=== PATIENT | female | born 1990 | race Caucasian/White ===

== ENCOUNTER 2019-11-12 05:09 | Inpatient (IN) | payer OTHER ==
[~2019-11-12 05:09] MED LIST: Buffered Lidocaine 1% SYRIN* 1 ML/SYRINGE INTRADERM ONE
--- OUTSIDE RECORDS SUMMARY | 2019-11-12 05:12 | XMS REPORT | Continuity of Care Document ---
:1990 External Reference #:[id number] Author Name Gil Nava JR, DO (transmitted by agent of provider Blanka Conley ) Address [address] [facility] [address], [place] [address] Problems Active Problems Provider Date Multigravida Gabrielle Jean CNM Onset: 03/30/2019 Previous uterine surgical scar Tariq Mauro MD Onset: 10/14/2019 Social History Type Date Description Comments Sex Unknown Tobacco Use Start: Unknown Never Smoked Cigarettes Smoking Status Reviewed: 11/03/19 Never Smoked Cigarettes ETOH Use Consumes 1 glass of wine per week Recreational Drug Use Does Not Use Drugs Allergies, Adverse Reactions, Alerts Description No Known Drug Allergies Medications Active Medications SIG Qnty Indications Ordering Provider Date PNV-Dha 1 by mouth every Unknown 27-0.6-0.4-300mg day Capsules Aspirin Adult Low Dose Unknown 81mg Tablets DR Medications Administered in Office Medication SIG Qnty Indications Ordering Provider Date PT SCRN Tbco Id as Non User Chaparrita Henry CNM 11/30/2018 Injection Immunizations CPT Code Status Date Vaccine Lot # [id number] Given 08/16/2019 Tetnus, Diptheria Toxoids And Acellular Pertussis, 745N2 PT > 7Yrs Old 85[address] Given 2019 Influenza Vaccine Quadrivalent Preser/Antibiotic [id number] Free Im Use Vital Signs Date Vital Result Comment 11/03/2019 9:27am Height 63 inches 5'3" Last Menstrual Period 2951758 3 Parity 1 03/30/2019 2:18pm BP Systolic 120 mmHg BP Diastolic 70 mmHg Height 63 inches 5'3" Weight 107.00 lb BMI (Body Mass Index) 19.0 kg/m2 Last Menstrual Period 8489844 3 Parity 1 Results Test Acquired Date Facility Test Result H/L Range Note Laboratory test 10/08/2019 [facility] Genital For SEE RESULT 1 [place] [address] GRP B Strep BELOW [phone] Only Laboratory test 08/16/2019 [facility] Glucose 1 HR 99 mg/dL Normal 70-160 2 [place] [address] Post Prandial [phone] CBC With No 08/16/2019 [facility] White Blood 9.9 Normal 3.5- 10.8 [place] [address] Count 10^3/uL [phone] Red Blood Count 4.10 10^6/uL Normal 3.70-4.87 Hemoglobin 13.2 g/dL Normal 12.0-16.0 Hematocrit 38 % Normal 35-47 Mean Corpuscular Volume 94 fL Normal 80-97 Mean Corpuscular Hemoglobin 32 pg High 27-31 Mean Corpuscular HGB Conc 34 g/dL Normal 31-36 Red Cell Distribution Width 13 % Normal 10-15 Platelet Count 179 10^3/uL Normal 150-450 Mean Platelet Volume 8.1 fL Normal 7.4-10.4 Sequential Integreated SCRN 2 [place] 05/17/2019 Interpretation SEE BELOW 3 Risk For Ontd 1:4300 Age Risk Down Syndrome 1:950 TERESITA Down Syndrome Risk <1:5000 <1:270 TERESITA Trisomy 18 Risk <1:5000 <1:100 Calculated Gestational Age 16.7 4 Afp,Serum 59.4 ng/mL Afp Mom 1.31 5 HCG,Serum 37.3 IU/mL HCG Mom 1.01 Estriol,Free 1.36 ng/mL Estriol Mom 1.26 Inhibin A,Dimeric 205 pg/mL Inhibin A Mom 1.03 Armida-A 2006.9 ng/mL 6 Armida-A Mom 1.43 NT Mom 0.79 7 Referring Physician Name NOT GIVEN Referring Physician Phone NOT GIVEN Referring Physician Npi NOT GIVEN Specimen # From Part 1 NOT GIVEN Date Of 1990 Collection Date 05/17/2019 Maternal Weight 107 lbs Est'd Date Of Delivery 10/26/2019 Nuchal Translucency 1.2 mm [place] Rump Length 68 mm Ultrasound Date 04/20/2019 Nasal Bone NOT GIVEN Mother's Ethnic Origin Insulin Depend Diabetic NO Repeat Specimen NO Number Of Fetuses 1 HX Of Neural Tube Defects NO Cigarette Smoker NOT GIVEN Twin B Nasal Bone NG 8 1 SEE RESULT BELOW Name: YESSI CORNELIUS : [address]: Gil Nava DO Acct: [id number] Unit: [id number] AGE: 29 Location: [facility] Re10/08/19 SEX: F Status: REG REF SPEC: [id number] MELONIE: 10/08/19-[address]: Gil Nava DO REQ: [id number] RECD: 10/08/19161 STATUS: COMP _ SOURCE: DENISE/DELIA/RE SPDESC: ORDERED: Grp B Strp Scrn COMMENTS: [id number] QUERIES: Is Patient Penicillin Allergic? N Is patient penicillin allergic and/or sensitivities needed? N Provider Requisition # [id number] Procedure Result Reported Site Group B Strep Culture Screen Final 10/10/19- 1201 ML Group B Strep Screen Negative * ML - Main Lab . END OF REPORT DEPARTMENT OF PATHOLOGY, [address] [place] [address] Anshu Perez M.D. Director [facility] # [id number] 2 [id number] SCREEN NEGATIVE FOR OPEN NTD, DOWN SYNDROME AND TRISOMY 18. NT WAS USED IN THE RISK CALCULATIONS. 4 [place] rump length (CRL) was used to calculate gestational age. TUAN, if provided, was not used for gestational age dating. 5 Reference Range: <2.50 IDD <1.90 TWINS <4.00 TWINS IDD <3.50 TRIPLETS <4.50 6 This test was performed using a kit that has not been cleared or approved by the FDA. The analytical performance characteristics of this test have been determined by [employer] [facility]. This test should not be used for diagnosis without confirmation by other medically established means. 7 The Sequential Integrated Screen combines ARMIDA-A and hCG with or without a nuchal translucency measurement in the first trimester with AFP, unconjugated estriol, intact hCG and Inhibin A in the second trimester. This provides a useful screening test for detection of open neural tube defects, Down syndrome and Trisomy 18. It should be noted that normal results can never guarantee the of a normal baby and that 2 to 3 percent of newborns have some type of physical or mental defect, many of which are undetectable through any known diagnostic technique. Interpretation reviewed by: Rafa Palomares, Ph.D., [facility]. 8 For additional information, please refer to http://education.[employer].Quikly/faq/FAQ94 (This link is provided for informational/educational purposes only.) This is a screening test, not a diagnostic test. This risk assessment is based on demographic data provided by the ordering physician. Please notify the laboratory promptly if any data are incorrect. It has been observed that patients who smoke cigarettes during may have a slightly increased risk of having a false positive TERESITA screen for Down Syndrome or trisomy 18. If you have questions concerning this report: For clinical consultation, call ; For technical questions, call ext [phone]; For recalculations, fax to . Procedures Date Code Description Status 2019 59853 Echography Uterus Complete Completed Medical Devices Description No Information Available Encounters Description No Information Available Assessments Date Code Description Provider 10/26/2019 Z34.83 Encounter for supervision of other normal Ann-Marie Schwartz CNM , third trimester 10/14/2019 O34.211 Maternal care for low transverse scar from Tariq Mauro MD previous delivery 10/08/2019 O34.211 Maternal care for low transverse scar from Gil Nava JR, DO previous delivery 09/24/2019 Z34.83 Encounter for supervision of other normal Aquilino Steven M.D. , third trimester 09/07/2019 Z36.9 Encounter for screening, Aquilino Steven M.D. unspecified 08/16/2019 Z36.9 Encounter for screening, Aquilino Steven M.D. unspecified 08/16/2019 Z36.9 Encounter for screening, Laboratory unspecified 08/16/2019 Z23 Encounter for immunization Debi Arias MD 08/16/2019 O34.211 Maternal care for low transverse scar from Debi Arias MD previous delivery 07/16/2019 Z34.82 Encounter for supervision of other normal Aquilino Steven M.D. , second trimester 2019 Z36.3 Encounter for screening for Gil Nava JR, DO malformations 2019 O34.211 Maternal care for low transverse scar from Gil Nava JR, DO previous delivery 2019 Z23 Encounter for immunization Gil Nava JR, DO 2019 Z36.3 Encounter for screening for Ultrasounds malformations 05/17/2019 Z36.9 Encounter for screening, Debi Arias MD unspecified 05/17/2019 O34.211 Maternal care for low transverse scar from Tariq Mauro MD previous delivery 05/17/2019 Z36.9 Encounter for screening, Laboratory unspecified Plan of Treatment Future Appointment(s):11/12/2019 11:00 am - Ivis Alfonso CNM at [facility] O 12/21 1:30 pm - Gil Nava JR, DO at [facility]11/19/2019 1:30 pm - Ivis Alfonso CNM at [facility]11/12/2019 11:00 am - Gil Nava JR, DO at [facility] O R Functional Status Description No Information Available Mental Status Description No Information Available Referrals Description No Information Available
--- OUTSIDE RECORDS SUMMARY | 2019-11-12 05:12 | XMS REPORT | Continuity of Care Document ---
:1990 External Reference #:[id number] Author Name Gil Nava JR, DO (transmitted by agent of provider Blanka Conley ) Address [address] [facility], [place] [address] Problems Active Problems Provider Date Multigravida Gabrielle [...] CPT Code Status Date Vaccine Lot # [id number] Given 08/16/2019 Tetnus, Diptheria Toxoids And Acellular Pertussis, 745N2 PT > 7Yrs Old [address] Given 2019 Influenza Vaccine Quadrivalent Preser/Antibiotic [id number] Free Im Use Vital Signs Date Vital Result Comment 11/03/2019 9:27am Height 63 inches 5'3" Last Menstrual Period 8797639 3 Parity 1 03/30/2019 2:18pm BP Systolic 120 mmHg BP Diastolic 70 mmHg Height 63 inches 5'3" Weight 107.00 lb BMI (Body Mass Index) 19.0 kg/m2 Last Menstrual Period 1786637 3 Parity 1 Results Test Acquired Date Facility Test Result H/L Range Note Laboratory test 10/08/2019 [facility] Genital For SEE RESULT 1 [place] [address] GRP B Strep BELOW [phone] Only Laboratory test 08/16/2019 [facility] Glucose 1 HR 99 mg/dL Normal 70-160 2 [place] [address] Post Prandial [phone] CBC With No 08/16/2019 [facility] White Blood 9.9 Normal 3.5- 10.8 [place] [address] Count 10^3/uL [phone] Red Blood Count 4.10 10^6/uL Normal 3.70-4.87 [...] fL Normal 7.4-10.4 Sequential Integreated SCRN 2 [place] 05/17/2019 Interpretation SEE BELOW 3 Risk For [...] Of Delivery 10/26/2019 Nuchal Translucency 1.[address] [place] Rump Length 68 mm Ultrasound Date 04/20/2019 Nasal Bone NOT GIVEN Mother's Ethnic Origin Insulin Depend Diabetic NO Repeat Specimen NO Number Of Fetuses 1 HX Of Neural Tube Defects NO Cigarette Smoker NOT GIVEN Twin B Nasal Bone NG 8 1 SEE RESULT BELOW Name: YESSI CORNELIUS : [address]: Gil Nava DO Acct: [id number] Unit: [id number] AGE: 29 Location: [facility] Re10/08/19 SEX: F Status: REG REF SPEC: [id number] MELONIE: 10/08/19-[address]: Gil Nava DO REQ: [id number] RECD: 10/08/19161 STATUS: COMP _ SOURCE: DENISE/DELIA/RE SPDESC: ORDERED: Grp B Strp Scrn COMMENTS: [id number] QUERIES: Is Patient Penicillin Allergic? N Is patient penicillin allergic and/or sensitivities needed? N Provider Requisition # [id number] Procedure Result Reported Site Group B Strep Culture Screen Final 10/10/19- 1201 ML Group B Strep Screen Negative * ML - Main Lab . END OF REPORT DEPARTMENT OF PATHOLOGY, [address] [place] [address] Anshu Perez M.D. Director [facility] # [id number] 2 [id number] SCREEN NEGATIVE FOR OPEN NTD, DOWN SYNDROME AND TRISOMY 18. NT WAS USED IN THE RISK CALCULATIONS. [address] [place] rump length (CRL) was used to calculate gestational age. TUAN, if provided, was not used for gestational age dating. 5 Reference Range: <2.50 IDD <1.90 TWINS <4.00 TWINS IDD <3.50 TRIPLETS <4.50 6 This test was performed using a kit that has not been cleared or approved by the FDA. The analytical performance characteristics of this test have been determined by [facility]. This test should not be used for [...] technique. Interpretation reviewed by: Rafa Palomares, Ph.D., [facility]. 8 For additional information, please refer to http://education.[employer].Am[employer]/faq/FAQ94 (This link is provided for informational/educational purposes [...] call ; For technical questions, call ext [phone]; For recalculations, fax to . Procedures Date Code Description Status 2019 86424 Echography Uterus Complete Completed Medical Devices Description [...] 11:00 am - Ivis Alfonso CNM at [facility] O 12/21 1:30 pm - Gil Nava JR, DO at [facility]11/19/2019 1:30 pm - Ivis Alfonso CNM at [facility]11/12/2019 11:00 am - Gil Nava JR, DO at [facility] O R Functional Status Description No Information Available Mental Status Description No Information Available Referrals Description No Information Available
[2019-11-12] MEDS ORDERED: Lactated Ringers 1000 ML Bag* 1,000 ML IV SCH ×2 (06:00→08:00)
[2019-11-12 06:46] LABS: Urine Benzodiazepine Screen None Detected (None Detect); Urine Opiates Screen None Detected (None Detect)
[2019-11-12] MEDS ORDERED: Buffered Lidocaine 1% SYRIN* 1 ML/SYRINGE INTRADERM ONE (07:47)
[2019-11-12] MEDS ORDERED: Lactated Ringers 1000 ML Bag* 1,000 ML IV ONE (07:47)
--- NOTE | 2019-11-12 10:54 | HP ---
General Information - Reason for Visit contractions, early labor, TOLAC - General Information Maternal Age: 29 Grav: 3 Para: 1 SAB: 1 IEA: 0 Estimated Due Date: 10/31/19 Determined By: LMP Gestational Age in Weeks/Days: 41w5d Maternal Blood Type and Rh: A Positive - Results this Serology/RPR Result: Non-Reactive Rubella Result: Immune HBsAg Result: Negative HIV Result: Negative GBS Culture Result: Negative Past Medical History Delivery History: Hx C/Section - Hx of x 1 Pertinent Past Medical History: See Records - MTHFR heterozygous Pertinent Past Surgical History: See Records Pertinent Family History: See Records - Antepartal Records Antepartal Records: Reviewed, Complicated by: - Hx of x 1, excellent TOLAC candidate Review of Systems Constitutional: Uncomfortable CV Complaint: No Respiratory: Shortness of Breath: No Gastrointestinal: No Nausea/Vomiting, Normal Bowel Movement Genitourinary: No Dysuria, No Bleeding, No Leaking Fluid Musculoskeletal: No Complaint, No Epigastric Pain Neurological: No Headache, No Visual Changes Movement: Normal Exam Allergies/Adverse Reactions: Allergies No Known Allergies Allergy (Verified 11/12/19 05:20) T98.8 Pulse 91 EE 17 BP 113/75 02 Sat 100% Lab Values - Entire Visit: Laboratory Tests 11/12/19 05:44 Urine Opiates Screen None detected Ur Barbiturates Screen None detected Ur Phencyclidine Scrn None detected Ur Amphetamines Screen None detected U Benzodiazepines Scrn None detected Urine Cocaine Screen None detected - Measurements Height: 5 ft 3 in Weight: 130 lb Weight in lbs: 130.891740 Body Mass Index (BMI): 23.0 Pre- Weight: 110 lb Weight Gained This : 20 lbs and 0 ozs - Exam Breast: Breast Exam Deferred CVA: No CVA Tenderness Extremities: No Edema Heart: Normal Rhythm/Heart Sounds HEENT: No Significant Findings Lungs: Clear Bilaterally Rectal: Rectal Exam Deferred Reflexes: DTR 2+ Thyroid: No Thyromegaly - Abdominal Exam Abdomen Exam: Non-Tender, Fundal Height Consistent with Dates - Ultrasound/Biophysical Profile Ultrasound Status: Not Done Targeted Exam Findings Estimated Weight: 8# Cervical Exam: 1cm Presenting Part: Vertex Membrane Status: Intact Bleeding/Discharge: None EFM Findings - External Monitor Findings Baseline Heart Rate: 130 External Monitor Findings: Accelerations Present, No Pattern of Variable or Late Decelerations, Variability Moderate, Baseline Stable External Monitor Findings Comment: category I FHT Contractions: Regular, Moderate, 45-90 Seconds Assessment/Plan - Assessment 29 y/o at 41w5d presents with painful regular contractions, strongly desires TOLAC. First for failed IOL at 39 weeks, reason given for IOL MTHFR heterozygote. Pt is a good candidate for TOLAC. FHT is reactive and category I. Ca regularly, Cervix is only 1cm at this time. Risks versus benefits of TOLAC versus repeat reviewed with pt. Pt strongly desires TOLAC with expectant management at this time. RH+ Rubella Immune GBS negative - Obstetrical Risk Factors Obstetrical Risk Factors: Post-Dates, Previous C/Section in Labor - Plan Plan: Observe Plan Comment: Will admit and expectantly manage at this time Re-examine as clinically indicated Will augment with cooks balloon and/or Pitocin if clinically indicated - Date/Time of Admission Date of Admission: 11/12/19 Time of Admission: 07:30
--- NOTE | 2019-11-12 12:41 | PN ---
Progress Note - Progress Note Date of Service: 11/12/19 Note: 29 y/o at 41w5d in early labor, TOLAC Cervix re-examined and essentially unchanged after several hours of labor. Exam now is 1cm/80%/-3. Cervix is soft, anterior. FHT remains Category I, reactive with moderate variability. Discussed Risks and benefits of options at this point including continued expectant management versus proceeding with repeat versus attempt at augmentation. Pt continues to strongly desire TOLAC. Agrees to try Cooks balloon. Cooks balloon placed transcervically at 1220pm with 80cc NS and 70cc NS placed in the uterine and vaginal balloons respectively. Pt tolerated procedure well. Ca regularly q 3 minutes. Will continue to monitor closely, re-examine as clinically indicated, if contractions space out will augment with low dose pitocin. Anesthesia aware of pt presence on L&D and in house. Nestor Nava, DO BRYAN
--- NOTE | 2019-11-12 14:00 | CONSULT ---
Consult Consult: 29 yo woman with PMH significant for an elective section who is presenting for a TOLAC. HPI : Her previous section was done 2/2 PMH of being a MTHFR heterozygote. She had no symptoms of her gene mutation impacting her health such as a clot or pre- eclampsia. She was scheduled for a section today but came into the hospital in labor. After discussion of risks vs benefits with Dr. Nava she decided to try to have a vaginal delivery. She is larisa regularly and a cook catheter was placed to help facilitate progression. She currently denies any symptoms of SOB, anything suggestive of a blood clot. Her baby has had reassuring heart tracings. Her has been non-eventful. PMH - no issues with anesthesia in the past NKDA Meds - ASA was stopped a week ago, Multi-vitamins ROS : see above PE : VS - Reviewed, see RN charting Gen - young, thin HEENT - Mal 2, TM dist > 6cm Pulm - CTABL CV - NMRG A/P: 29 yo woman with PMH significant for an elective section who is presenting for a TOLAC. She is having intense and painful contractions that she is able to recover from. However, she is only dilated to 1cm but she is 80 % effaced. Given that an obstetrical intervention has occurred and the intensity of her contractions, Dr. Nava has asked that an anesthesiologist stay in the hospital in case emergently needed. I discussed with her what type of anesthesia care may happen in case she has to emergently go to the OR. She also is currently considering an epidural. Thank you for allowing us to participate in her care.
--- NOTE | 2019-11-12 21:43 | PN ---
Progress Note - Progress Note Date of Service: 11/12/19 Note: 29 y/o at 41w5d in labor, TOLAC Labor course --> spontaneous contractions with limited cervical change FT--> 1cm --> cooks balloon 80/70 at 1230 --> spontaneously expelled at 1830 cervix 5cm --> expectantly managed --> re-examined at 2054 head with good descent of head; AROM'd with light meconium. FHT has been category I with accelerations and moderate variablity, no decels throughout labor [place] - pt has been larisa spontaneously q 2-3 minutes Will expectantly manage at this time continuous EFM Will re-examine as clinically indicated Will augment with Pitocin if indicated Anticipate vaginal delivery RH+/RI GBS negative DO IRVIN Darden
--- NOTE | 2019-11-12 23:12 | PN ---
Progress Note - Progress Note Date of Service: 11/12/19 Note: Pt continuing to contract regularly. Feeling more pressure with contractions. Early decelerations intermittently with contractions. Occasional Variable. Reactive with good variability, reassuring. Continuous monitoring. Continue Expectant management. Anticipate Vaginal delivery. DO IRVIN Darden
[2019-11-13] MEDS ORDERED: OBEPIDURAL* 250 ML EPIDURAL ONE (00:20)
--- NOTE | 2019-11-13 00:24 | PN ---
Progress Note - Progress Note Date of Service: 11/13/19 Note: Pt re-examined. Now 7cm/100/-1. Contractions increasing in intensity. Pt requests epidural, Anesthesia notified. Pt continues to desire TOLAC. FHT is reactive and reassuring with moderate variablity, + accels and occasional early decelerations. OK for epidural. Ca regularly and making progress. Re-examine as clinically indicated. Anticipate vaginal delivery. Nestor Nava, DO BRYAN
[2019-11-13] MEDS ORDERED: Lactated Ringers 1000 ML Bag* 500 ML IV PRN ×2 (01:29)
[2019-11-13] MEDS ORDERED: Sodium Citrate/Citric Acid* 15 ML UDC PO PRN (01:29)
[2019-11-13] MEDS ORDERED: Famotidine TAB* 20 MG PO PRN (01:29)
[2019-11-13] MEDS ORDERED: Lactated Ringers 1000 ML Bag* 1,000 ML IV ONE (01:29)
[2019-11-13] MEDS ORDERED: Phenylephrine 40 MCG/ML SYRINGE IV PUSH PRN (01:29)
[2019-11-13] MEDS ORDERED: EPHEDrine (Pressors)* 50 MG/ML VIAL IV PUSH PRN ×2 (01:29)
[2019-11-13] MEDS ORDERED: OBEPIDURAL* 250 ML EPIDURAL SCH (02:00)
[2019-11-13] MEDS ORDERED: Lactated Ringers 1000 ML Bag* 1,000 ML IV SCH ×2 (02:00→14:00)
[2019-11-13] MEDS: Phenylephrine 40 MCG/ML SYRINGE IV PUSH PRN ×2 (02:02→02:05)
[2019-11-13] MEDS ORDERED: Oxytocin in LR* 20 UNITS/1,000 ML BAG IVPB ONE (02:32)
--- NOTE | 2019-11-13 02:48 | PN ---
Progress Note - Progress Note Date of Service: 11/13/19 Note: Pt now comfortable s/p Epidural. S/P Epidural BP's with transient drop which led to FHT changes including variable decels and late decel x 2. Pt adequately resuscitated and BP's improved after which FHT abnormalities resolved. Throughout time tracing has maintained good beat to beat variability. Currently FHT is baseline 140bpm, moderate variablity, + accels, no patterned late or variable decels. Pt continues to contract. Cervix is now 7cm/100/0 station. Will start Low-dose Pitocin to encourage continued descent. Pt continues to desire TOLAC. Will continue maternal repositioning as indicated. Continuous EFM. DO IRVIN Darden
[2019-11-13] MEDS ORDERED: Oxytocin in LR* 20 UNITS/1,000 ML BAG IVPB SCH (03:00)
--- NOTE | 2019-11-13 06:59 | PN ---
Progress Note - Progress Note Date of Service: 11/13/19 Note: Pt on Pitocin overnight, larisa regularly and sleeping comfortably. Re-examined at ~630am, now 8-9cm/100%/0 station; pt with irresistible urge to push, attempted to push past cervix briefly, cervix is now a lip. FHT with prolonged deceleration to the 80's-90's after push. Pitocin off, Oxygen applied and maternal repositioning with good effect. Mother now on hands and knees, comfortable. FHT is reactive with moderate variability and early decelerations, stable baseline at 140bpm. Larisa q 2-3 minutes. Discussed with patient risks versus benefits of continuing with TOLAC. Pt wishes to proceed with TOLAC at this time. Is continuing to contract without augmentation and FHT has resolved as described above. Agreed with patient to continue with TOLAC for additional 1-2 hours as long as FHT is reassuring. Will re-examine as clinically indicated, if no progress or any signs of distress on next exam will proceed with repeat . Pt expresses agreement to and understanding of plan. DO IRVIN Darden
[2019-11-13] MEDS ORDERED: diPHENhydraMINE IV* 50 MG/ML 1 ml VIAL (BENADRYL) ONE (10:43)
[2019-11-13] MEDS ORDERED: Dibucaine 1% 28.35 GM TUBE ONE (12:34)
[2019-11-13] MEDS ORDERED: Ibuprofen TAB* 600 MG ONE (12:34)
[2019-11-13] MEDS ORDERED: Acetaminophen TAB* 325 MG ONE (12:34)
[2019-11-13] MEDS ORDERED: Witch Hazel PAD* JAR ONE (12:35)
[2019-11-13] MEDS ORDERED: Witch Hazel PAD* JAR TOPICAL PRN (13:02)
[2019-11-13] MEDS ORDERED: Glycerin ADULT SUPP PR PRN (13:02)
[2019-11-13] MEDS: Ibuprofen TAB* 600 MG PO PRN ×2 (13:35→19:40)
[2019-11-13] MEDS: Acetaminophen TAB* 325 MG PO PRN ×2 (13:36→17:43)
[2019-11-13] MEDS ORDERED: Phenylephrine 40 MCG/ML SYRINGE ONE (14:37)
[2019-11-13] MEDS ORDERED: Lidocaine 1% INJ* 10 MG/ML 30 ML SDV ONE (14:37)
[2019-11-13] MEDS: Docusate CAP* 100 MG PO SCH (15:58)
--- NOTE | 2019-11-13 16:34 | PROCNOTE ---
[facility] OB: Delivery Note - Delivery A Date of : 11/13/19 Time of : 11:30 [place] Sex: Male Weight at : 8 lb 7 oz Score 1 Minute: 7 Score 5 Minutes: 9 Gestational Age in Weeks and Days at Delivery: 41 Weeks and 6 Days Delivery Method: Spontaneous Vaginal Labor: Spontaneous Did Patient attempt ?: Yes, Successful Amniotic Fluid: Meconium Estimated Blood Loss: 300 Anesthesia/Analgesia: CEI for Labor Delivered By: Jamila Burden - Nursery Level of Nursery: Regular/Bedside - Perineum Perineal Injury: Perineal Laceration, Vaginal Laceration, 3rd Degree Extension - Events Delivery Events of Note: Pitocin During Labor, Maternal Temperature during Labor , Pushed > 3 Hours Delivery Events of Note Comment: Pushed 3 hours and 5 minutes - Additional Delivery Notes Additional Delivery Notes: Pt with prior CS and presented for induction of labor with balloon catheter and then AROM. She slowly progressed to AL but was able to push through the lip to fully dilated. She pushed for ~3hrs in various positions to deliver the infant' s head in JAYE position followed quickly by the shoulders and the rest of the body. The baby was placed on mom's abdomen. The cord was clamped x2 and cut. The placenta was delivered with fundal massage and gentle cord traction and appeared intact. There was a 3rd degree laceration with right labial and sulcal tear. The sphincter muscle was reapproximated with 2 figure of eight sutures of 2-0 vicryl. The sulcal tear was repaired with 3-0 vicryl in a running locked fashion and then the rest of the perineal tear was repaired in the usual fashion. The skin laceration extended just to the edge of the anus. Finally the labial tear was reapproximated. Fundus was firm with good hemostasis.
[2019-11-13] MEDS ORDERED: Simethicone TAB* 80 MG TAB.CHEW PO SCH (17:30)
[2019-11-14] MEDS: Acetaminophen TAB* 325 MG PO PRN ×4 (00:43→21:00)
[2019-11-14] MEDS: Ibuprofen TAB* 600 MG PO PRN ×3 (06:31→21:00)
[2019-11-14 06:34] LABS: ABS Lymphocytes 1.6 10^3/ul (1.0-4.8); ABS Monocytes 0.7 10^3/ul (0-0.8); ABS Neutrophils 10.8 10^3/ul (1.5-7.7); Eosinophil % 0.2 %; Hematocrit 24 % (35-47); Hemoglobin 8.2 g/dL (12.0-16.0); Lymphocyte % 12.5 %; Mean Corpuscular HGB Conc 35 g/dL (31-36); Mean Corpuscular Hemoglobin 32 pg (27-31); Mean Corpuscular Volume 92 fL (80-97); Platelet Count 117 10^3/uL (150-450); Red Blood Count 2.56 10^6 /uL (3.70-4.87); Red Cell Distribution Width 13 % (10-15); White Blood Count 13.2 10^3/uL (3.5-10.8)
[2019-11-14] MEDS: Docusate CAP* 100 MG PO SCH ×4 (08:09→21:00)
[2019-11-14] MEDS: Ferrous Gluconate TAB* 324 MG TAB PO SCH ×2 (08:12→21:00)
[2019-11-14] MEDS: Dibucaine 1% 28.35 GM TUBE PR PRN (14:18)
[2019-11-15] MEDS: Acetaminophen TAB* 325 MG PO PRN ×3 (01:23→11:51)
[2019-11-15] MEDS: Ibuprofen TAB* 600 MG PO PRN (08:04)
[2019-11-15] MEDS: Ferrous Gluconate TAB* 324 MG TAB PO SCH (08:05)
[2019-11-15] MEDS: Docusate CAP* 100 MG PO SCH (08:05)
[2019-11-15 08:26] VITALS: BP 122/67
[2019-11-15] MEDS: Dibucaine 1% 28.35 GM TUBE PR PRN (11:51)
== END 2019-11-15 12:15 | disposition home or self-care (01) | DRG 768 ==
LOC: MCHOB 05:09
PROVIDERS: ADMIT Obstetrics & Gynecology; ATTEND Obstetrics & Gynecology
PROC: 10E0XZZ Delivery of Products of Conception, External Approach (ICD-10-PCS; principal; 2019-11-13)
PROC: 0DQR0ZZ Repair Anal Sphincter, Open Approach (ICD-10-PCS; 2019-11-13)
PROC: 10907ZC Drainage of Amniotic Fluid, Therapeutic from Products of Conception, Via Natural or Artificial Opening (ICD-10-PCS; 2019-11-13)
DX: O48.0 Post-term pregnancy (principal); Z37.0 Single live birth; O70.20 Third degree perineal laceration during delivery, unspecified; O77.0 Labor and delivery complicated by meconium in amniotic fluid; O90.81 Anemia of the puerperium; D64.9 Anemia, unspecified; O34.211 Maternal care for low transverse scar from previous cesarean delivery; Z3A.41 41 weeks gestation of pregnancy
CPT/HCPCS: 36415; 80307; 85025; A9270-GY; G0480; J1200

== ENCOUNTER 2021-11-11 11:23 | Inpatient (IN) ==
[2021-11-11] MEDS ORDERED: Lactated Ringers 1000 ml BAG 1,000 ML IV ONE (12:35)
[2021-11-11] MEDS ORDERED: Buffered Lidocaine 1% SYRIN 1 ml INTRADERM ONE (12:35)
[2021-11-11] MEDS ORDERED: Lactated Ringers 1000 ml BAG 1,000 ML IV SCH (13:00)
[2021-11-11 13:30] LABS: Urine Benzodiazepine Screen None Detected (None Detect); Urine Cannabinoids Screen None Detected (None Detect); Urine Opiates Screen None Detected (None Detect)
[2021-11-11 14:08] LABS: Urine Appearance Clear; Urine Bilirubin Negative (Negative); Urine Blood Negative (Negative); Urine Color Yellow; Urine Glucose Negative (Negative); Urine Ketones Negative (Negative); Urine Nitrite Negative (Negative); Urine Protein Negative (Negative); Urine Specific Gravity 1.012 (1.002-1.030); Urine Urobilinogen Negative (Negative)
[2021-11-11 14:11] LABS: Urine Bacteria Absent (Absent); Urine Red Blood Cell Trace(0-2/hpf) (Absent); Urine Squamous Epithelial Cell Present (Absent); Urine White Blood Cell Trace(0-5/hpf) (Absent)
[2021-11-11 14:58] LABS: ABS Lymphocytes 1.5 10^3/ul (1.0-4.8); ABS Monocytes 0.5 10^3/ul (0-0.8); ABS Neutrophils 6.8 10^3/ul (1.5-7.7); Eosinophil % 0.2 %; Hematocrit 38 % (35-47); Hemoglobin 13.2 g/dL (12.0-16.0); Lymphocyte % 17.1 %; Mean Corpuscular HGB Conc 34 g/dL (31-36); Mean Corpuscular Hemoglobin 32 pg (27-31); Mean Corpuscular Volume 92 fL (80-97); Mean Platelet Volume 8.7 fL (7.4-10.4); Platelet Count 156 10^3/uL (150-450); Red Blood Count 4.18 10^6 /uL (3.70-4.87); Red Cell Distribution Width 13 % (10-15); White Blood Count 8.8 10^3/uL (3.5-10.8)
[2021-11-11] MEDS ORDERED: Oxytocin in LR 20 UNITS/1,000 ML BAG IVPB SCH (23:45)
[2021-11-12] MEDS ORDERED: Nalbuphine 10 MG/ML 1 ML VIAL IV PRN (00:52)
[2021-11-12] MEDS ORDERED: Promethazine INJ(RESTRICTED) 25 MG/ML 1 ml VIAL IV PRN (00:52)
[2021-11-12] MEDS ORDERED: Witch Hazel PAD JAR ONE ×2 (12:54→12:57)
[2021-11-12] MEDS ORDERED: Dibucaine 1% OINT 28.35 GM TUBE ONE (12:54)
[2021-11-12] MEDS ORDERED: Witch Hazel PAD JAR TOPICAL PRN (13:58)
[2021-11-12] MEDS ORDERED: Glycerin ADULT 2.4 gm SUPP PR PRN (13:58)
[2021-11-12] MEDS ORDERED: Dibucaine 1% OINT 28.35 GM TUBE PR PRN (13:58)
[2021-11-12] MEDS ORDERED: Lactated Ringers 1000 ml BAG 1,000 ML IV SCH (14:00)
[2021-11-12] MEDS ORDERED: Lidocaine 1% VIAL 10 MG/ML VIAL ONE (15:58)
[2021-11-13 06:14] LABS: ABS Lymphocytes 1.4 10^3/ul (1.0-4.8); ABS Monocytes 0.3 10^3/ul (0-0.8); ABS Neutrophils 6.6 10^3/ul (1.5-7.7); Eosinophil % 0.4 %; Hematocrit 30 % (35-47); Hemoglobin 10.3 g/dL (12.0-16.0); Lymphocyte % 16.9 %; Mean Corpuscular HGB Conc 34 g/dL (31-36); Mean Corpuscular Hemoglobin 31 pg (27-31); Mean Corpuscular Volume 91 fL (80-97); Mean Platelet Volume 7.6 fL (7.4-10.4); Nucleated Red Blood Cells % 0.1; Platelet Count 149 10^3/uL (150-450); Red Blood Count 3.31 10^6 /uL (3.70-4.87); Red Cell Distribution Width 14 % (10-15); White Blood Count 8.5 10^3/uL (3.5-10.8)
[2021-11-14 08:33] VITALS: BP 107/74
== END 2021-11-14 13:08 | disposition home or self-care (01) | DRG 807 ==
LOC: MCHOBOUT 11:23 → MCHOB 12:39
PROVIDERS: ADMIT Obstetrics & Gynecology; ATTEND Obstetrics & Gynecology